=== PATIENT | female | born 1995 | race Two or more races ===

== ENCOUNTER 2020-12-15 08:15 | Inpatient (IN) | payer OTHER ==
[2020-12-15] MEDS ORDERED: ELECTROLYTE-148 SOLN 1,000 ML IV SCH (09:00)
[2020-12-15] MEDS ORDERED: OXYTOCIN 30 UNITS in 0.9% NS 30 UNIT/500 ML INFUS.BAG IVPB SCH (09:00)
[2020-12-15 09:19] VITALS: BMI 27.4
[2020-12-15] MEDS ORDERED: OXYTOCIN 30 UNITS in 0.9% NS 30 UNIT/500 ML INFUS.BAG IVPB ONE (09:40)
[2020-12-15 11:39] LABS: INR 0.97 (0.83-1.09); PROTHROMBIN TIME (PATIENT) 11.7 SEC (9.7-13.0)
[2020-12-15 11:42] LABS: ACTIVATED PTT 24.7 SECONDS (25.2-36.5)
[2020-12-15 11:55] LABS: CALCIUM 8.6 mg/dL (8.5-10.1)
[2020-12-15 11:56] LABS: BLOOD UREA NITROGEN 4.3 mg/dL (7-18)
[2020-12-15 11:59] LABS: CREATININE 0.4 mg/dL (0.55-1.3)
[2020-12-15] MEDS ORDERED: PCA PUMP NR ONE (14:00)
[2020-12-15] MEDS ORDERED: FENTANYL/BUPIVACAINE/NS/PF - PCEA - 50 ML DISP.SYRIN EP ONE ×2 (14:00→16:53)
[2020-12-15] MEDS: FENTANYL/BUPIVACAINE/NS/PF - PCEA - 50 ML DISP.SYRIN EP SCH ×2 (14:25→17:00)
[2020-12-15] MEDS ORDERED: NALOXONE HCL 0.4 MG/ML VIAL IVPUSH PRN (14:40)
[2020-12-15] MEDS ORDERED: BUPIVACAINE HCL/PF 0.25% (2.5MG/ML) 10 ML VIAL ONE (16:31)
[2020-12-15] MEDS ORDERED: OXYTOCIN 20 UNITS in 0.9% NS 20 UNIT/1,000 ML INFUS.BAG IV ONE (18:36)
[2020-12-15] MEDS ORDERED: IBUPROFEN 600 MG TABLET (FP) PO ONE (19:25)
[2020-12-15] MEDS ORDERED: ACETAMINOPHEN 325 MG TABLET (FP) ONE (19:25)
[2020-12-15] MEDS: ACETAMINOPHEN 325 MG TABLET (FP) PO PRN (19:30)
[2020-12-15] MEDS: IBUPROFEN 600 MG TABLET (FP) PO PRN (19:30)
[2020-12-15] MEDS ORDERED: BISACODYL 10 MG SUPP.RECT RC PRN (19:49)
[2020-12-15] MEDS ORDERED: WITCH HAZEL 50% (TUCKS) 40 PAD/JAR PAD TP PRN (19:49)
[2020-12-15] MEDS ORDERED: BENZOCAINE 20% 57 GM BOTTLE TP PRN (19:49)
[2020-12-15] MEDS ORDERED: BENZOCAINE 28 GM HEMORRHOIDAL OINTMENT TP PRN (19:49)
[2020-12-15] MEDS ORDERED: METHYLERGONOVINE MALEATE 0.2 MG/1 ML AMP IM PRN (19:49)
[2020-12-15] MEDS ORDERED: OXYTOCIN 20 UNITS in 0.9% NS 20 UNIT/1,000 ML INFUS.BAG IV SCH (20:00)
[2020-12-16] MEDS: IBUPROFEN 600 MG TABLET (FP) PO PRN ×3 (01:41→16:44)
[2020-12-16] MEDS: ACETAMINOPHEN 325 MG TABLET (FP) PO PRN ×3 (01:41→16:43)
[2020-12-16 08:00] LABS: HEMATOCRIT 34.2 % (32.4-45.2); HEMOGLOBIN 11.3 GM/dL (10.7-15.3); MCHC 33.1 g/dl (32.0-36.0); MEAN CELL VOLUME 96.6 fl (80-96); MEAN PLT VOLUME 9.6 fl (7.5-11.1); PLATELET COUNT 176 10^3/uL (134-434); RBC 3.54 M/mm3 (3.60-5.2); RDW 13.8 % (11.6-15.6); WHITE BLOOD COUNT 11.8 K/mm3 (4.0-10.0)
[2020-12-16 09:34] LABS: ANISOCYTOSIS 1+; MACROCYTOSIS 0; PLATELET ESTIMATE NORMAL
[2020-12-16] MEDS ORDERED: SENNOSIDES/DOCUSATE COMBO (SENNA PLUS) TABLET (UD) PO PRN (22:00)
[2020-12-17] MEDS: ACETAMINOPHEN 325 MG TABLET (FP) PO PRN (01:34)
[2020-12-17] MEDS: IBUPROFEN 600 MG TABLET (FP) PO PRN (01:34)
[2020-12-17 11:02] VITALS: BP 100/64; PULSE 63; TEMP 98.3
== END 2020-12-17 11:30 | disposition home or self-care (01) | DRG 560 ==
LOC: JLDR 08:15 → J3W 21:10
PROVIDERS: ADMIT Specialist; ATTEND Specialist
PROC: 10E0XZZ Delivery of Products of Conception, External Approach (ICD-10-PCS; principal; 2020-12-15)
DX: O80 Encounter for full-term uncomplicated delivery (principal); Z3A.39 39 weeks gestation of pregnancy; Z37.0 Single live birth
CPT/HCPCS: 36415; 59409; 80048; 85025; 85610; 85730; 86780; 86850; 86900; 86901